=== PATIENT | male | born 1945 | race Caucasian/White ===

== ENCOUNTER → 2017-02-12 | Outpatient (CLI) | payer OTHER ==
[~2017-02-12] MED LIST: NONE PER PT
== END | disposition home or self-care (01) ==
LOC: EDSTATUS 02-04 14:07 → ROC 13:08
PROVIDERS: ATTEND Radiology Radiation Oncology
DX: C20 Malignant neoplasm of rectum (principal); Z92.3 Personal history of irradiation
CPT/HCPCS: 99212; G0463

== ENCOUNTER → 2017-03-31 | Outpatient (CLI) | payer OTHER | END | disposition home or self-care (01) | LOC: WOUND 10:57 | PROVIDERS: ATTEND Internal Medicine Cardiovascular Disease | DX: C20 Malignant neoplasm of rectum (principal); F41.9 Anxiety disorder, unspecified | CPT/HCPCS: 99214 ==

== ENCOUNTER → 2017-04-03 | Outpatient (CLI) | payer OTHER ==
[2017-04-03 12:47] LABS: ASPARTATE AMINO TRANSFERASE 16 U/L (15-37); BLOOD UREA NITROGEN 15 mg/dL (7-18)
== END | disposition home or self-care (01) ==
LOC: STAR 11:13
PROVIDERS: ATTEND Surgery
DX: Z01.818 Encounter for other preprocedural examination (principal); R94.31 Abnormal electrocardiogram [ECG] [EKG]; C20 Malignant neoplasm of rectum; F41.9 Anxiety disorder, unspecified
CPT/HCPCS: 36415; 80053; 82378; 85025; 93005

== ENCOUNTER 2017-04-10 11:14 | Inpatient (IN) | payer MEDICARE, OTHER ==
[~2017-04-10] VITALS: Ht 185.4 cm; Wt 103.2 kg
[2017-04-10 11:38] VITALS: BP 129/81
[2017-04-10] MEDS ORDERED: LACTATED RINGERS 1,000 ML IV SCH (11:45)
[2017-04-10] MEDS ORDERED: FENTANYL PF 250 MCG/5ML ONE (13:55)
[2017-04-10] MEDS ORDERED: MIDAZOLAM 1 MG/ML, 2ML ONE (13:56)
[2017-04-10] MEDS ORDERED: INDOCYANINE GREEN 25 MG VIAL ONE (13:56)
[2017-04-10] MEDS ORDERED: BUPIVACAINE/PF 0.5% ONE (13:57)
[2017-04-10] MEDS ORDERED: FENTANYL PF 100 MCG/2ML ONE ×2 (17:09→18:40)
[2017-04-10] MEDS ORDERED: BUPIVACAINE/PF-EPI 0.5% 1:200K ONE (17:18)
[2017-04-10] MEDS ORDERED: cloniDINE/PF 100 MCG/ML, 10 ML ONE (17:18)
[2017-04-10] MEDS ORDERED: ACETAMINOPHEN 325 MG TABLET PO PRN (18:30)
[2017-04-10] MEDS ORDERED: OXYcodone 5 MG/5 ML ORAL.SOL UDC PO PRN (18:30)
[2017-04-10] MEDS ORDERED: hydrALAzine 20 MG/ML, 1ML IV PRN (18:30)
[2017-04-10] MEDS ORDERED: ONDANSETRON 2MG/ML, 2ML IVPush PRN (18:30)
[2017-04-10] MEDS ORDERED: MEPERIDINE/PF 25MG/0.5ML IVPush PRN (18:30)
[2017-04-10] MEDS ORDERED: PROMETHAZINE 25 MG/ML, 1ML IV PRN (18:30)
[2017-04-10] MEDS ORDERED: LABETALOL 5MG/ML, 20ML IV PRN (18:30)
[2017-04-10] MEDS: FENTANYL PF 100 MCG/2ML IV PRN ×4 (18:40→19:10)
[2017-04-10] MEDS ORDERED: HYDROmorphone 1 MG/ML, 1ML ONE ×2 (18:40→19:09)
[2017-04-10] MEDS: HYDROmorphone 1 MG/ML, 1ML IV PRN ×5 (18:45→19:24)
[2017-04-10] MEDS ORDERED: LORazepam 1MG TABLET PO PRN (21:30)
[2017-04-10] MEDS ORDERED: LORazepam 2 MG/ML, 1ML IV PRN (21:30)
[2017-04-10] MEDS: POTASSIUM CHLORIDE 20 MEQ in D5%-0.45% NACL 1,000 ML IV SCH (21:30)
[2017-04-10] MEDS: OXYcodone 5 MG/5 ML ORAL.SOL UDC PO PRN ×2 (21:34→22:32)
[2017-04-10] MEDS: IBUPROFEN 600 MG TABLET PO SCH (21:34)
[2017-04-10] MEDS: ONDANSETRON 2MG/ML, 2ML IV PRN (21:38)
[2017-04-10] MEDS: ACETAMINOPHEN 500 MG TABLET PO SCH (22:32)
[2017-04-10] MEDS: FAMOTIDINE 20 MG TABLET PO SCH (23:11)
[2017-04-11 03:37] VITALS: BP 144/83
[2017-04-11] MEDS: ONDANSETRON 2MG/ML, 2ML IV PRN (04:39)
[2017-04-11] MEDS: ACETAMINOPHEN 500 MG TABLET PO SCH ×4 (04:39→23:01)
[2017-04-11] MEDS: OXYcodone 5 MG/5 ML ORAL.SOL UDC PO PRN ×2 (04:39→12:21)
[2017-04-11] MEDS: CEFOTETAN PMX 2GM/50ML 50 ML IVPB SCH ×2 (05:16→17:17)
[2017-04-11 06:35] VITALS: BP 124/66
[2017-04-11] MEDS: IBUPROFEN 600 MG TABLET PO SCH ×3 (08:49→21:10)
[2017-04-11] MEDS: FAMOTIDINE 20 MG TABLET PO SCH ×2 (08:49→21:10)
[2017-04-11 09:18] LABS: HEMATOCRIT 44.7 % (39.2-51.8); HEMOGLOBIN 15.3 g/dL (13.7-18.0); WHITE BLOOD COUNT 12.2 x10^3/uL (3.4-10)
[2017-04-11 09:29] LABS: BLOOD UREA NITROGEN 16 mg/dL (7-18)
[2017-04-11] MEDS ORDERED: ENOXAPARIN 40 MG/0.4 ML SQ SCH (12:15)
[2017-04-11 12:51] VITALS: BP 114/64
[2017-04-11] MEDS: POTASSIUM CHLORIDE 20 MEQ in D5%-0.45% NACL 1,000 ML IV SCH (17:18)
[2017-04-11 20:45] VITALS: BP 111/68
[2017-04-12 02:24] VITALS: BP 129/74
[2017-04-12] MEDS: ACETAMINOPHEN 500 MG TABLET PO SCH ×4 (05:07→22:28)
[2017-04-12 05:36] LABS: HEMATOCRIT 40.9 % (39.2-51.8); HEMOGLOBIN 13.9 g/dL (13.7-18.0); WHITE BLOOD COUNT 10.9 x10^3/uL (3.4-10)
[2017-04-12 05:47] LABS: BLOOD UREA NITROGEN 15 mg/dL (7-18)
[2017-04-12] MEDS: FAMOTIDINE 20 MG TABLET PO SCH ×2 (08:18→21:00)
[2017-04-12] MEDS: IBUPROFEN 600 MG TABLET PO SCH ×3 (08:20→21:00)
[2017-04-12] MEDS: ONDANSETRON 2MG/ML, 2ML IV PRN ×2 (08:22→20:07)
[2017-04-12] MEDS: ENOXAPARIN 40 MG/0.4 ML SQ SCH (08:26)
[2017-04-12 08:54] VITALS: BP 145/80
[2017-04-12] MEDS: OXYcodone 5 MG/5 ML ORAL.SOL UDC PO PRN (11:32)
[2017-04-12 12:31] VITALS: BP 146/77
[2017-04-12] MEDS: POTASSIUM CHLORIDE 20 MEQ in D5%-0.45% NACL 1,000 ML IV SCH (14:45)
[2017-04-12 20:01] VITALS: BP 142/84
[2017-04-12] MEDS: HYDROmorphone 1 MG/ML, 1ML IV PRN ×2 (20:07→22:21)
[2017-04-13] MEDS: HYDROmorphone 1 MG/ML, 1ML IV PRN ×2 (00:57→04:09)
[2017-04-13 01:01] VITALS: BP 147/81
[2017-04-13] MEDS: ACETAMINOPHEN 500 MG TABLET PO SCH ×4 (03:14→22:30)
[2017-04-13] MEDS: ONDANSETRON 2MG/ML, 2ML IV PRN ×2 (04:09→13:05)
[2017-04-13 08:24] VITALS: BP 157/83
[2017-04-13 08:33] LABS: HEMATOCRIT 48.1 % (39.2-51.8); HEMOGLOBIN 16.4 g/dL (13.7-18.0); WHITE BLOOD COUNT 14.6 x10^3/uL (3.4-10)
[2017-04-13 08:35] LABS: BLOOD UREA NITROGEN 19 mg/dL (7-18)
[2017-04-13] MEDS: IBUPROFEN 600 MG TABLET PO SCH ×3 (09:00→20:35)
[2017-04-13] MEDS: FAMOTIDINE 20 MG TABLET PO SCH ×2 (09:00→20:35)
[2017-04-13] MEDS: ENOXAPARIN 40 MG/0.4 ML SQ SCH (09:00)
[2017-04-13] MEDS: POTASSIUM CHLORIDE 20 MEQ in D5%-0.45% NACL 1,000 ML IV SCH (10:55)
[2017-04-13 15:25] VITALS: BP 134/74
[2017-04-13 19:00] VITALS: BP 112/62
[2017-04-14 02:26] VITALS: BP 154/84
[2017-04-14] MEDS: POTASSIUM CHLORIDE 20 MEQ in D5%-0.45% NACL 1,000 ML IV SCH (03:11)
[2017-04-14] MEDS: ACETAMINOPHEN 500 MG TABLET PO SCH ×5 (04:16→22:50)
[2017-04-14] MEDS: ENOXAPARIN 40 MG/0.4 ML SQ SCH (08:48)
[2017-04-14] MEDS: FAMOTIDINE 20 MG TABLET PO SCH ×2 (08:48→20:26)
[2017-04-14] MEDS: IBUPROFEN 600 MG TABLET PO SCH ×3 (08:48→20:26)
[2017-04-14 09:00] VITALS: BP 146/78
[2017-04-14 09:05] LABS: HEMATOCRIT 44.3 % (39.2-51.8); HEMOGLOBIN 15.1 g/dL (13.7-18.0); WHITE BLOOD COUNT 11.9 x10^3/uL (3.4-10)
[2017-04-14 09:14] LABS: BLOOD UREA NITROGEN 23 mg/dL (7-18)
[2017-04-14 16:59] VITALS: BP 148/82
[2017-04-14] MEDS ORDERED: CALCIUM CARBONATE 500 MG TAB.CHEW PO PRN (18:30)
[2017-04-14] MEDS: D5%-0.45NACL+KCL 20MEQ 1,000 ML IV SCH ×2 (18:33→22:50)
[2017-04-14 19:32] VITALS: BP 144/89
[2017-04-14] MEDS ORDERED: DIPHENOXYLATE/ATROPINE TABLET PO SCH (21:00)
[2017-04-15 01:31] VITALS: BP 154/74
[2017-04-15 05:17] LABS: HEMATOCRIT 43.4 % (39.2-51.8); HEMOGLOBIN 14.7 g/dL (13.7-18.0); WHITE BLOOD COUNT 11.4 x10^3/uL (3.4-10)
[2017-04-15 05:43] LABS: BLOOD UREA NITROGEN 23 mg/dL (7-18); C-REACTIVE PROTEIN, QUANT 0.85 mg/dL (0.02-0.49)
[2017-04-15] MEDS: METOCLOPRAMIDE 5 MG/ML, 2ML IVPush SCH ×3 (07:28→19:44)
[2017-04-15 07:47] VITALS: BP 125/78
[2017-04-15] MEDS ORDERED: D5%-0.45NACL+KCL 20MEQ 1,000 ML IV SCH (08:30)
[2017-04-15] MEDS ORDERED: OMNIPAQUE 350 MG/ML, 150 ML BOTTLE ONE (08:38)
[2017-04-15 09:29] LABS: BLOOD UREA NITROGEN 22 mg/dL (7-18)
[2017-04-15] MEDS: ENOXAPARIN 40 MG/0.4 ML SQ SCH (09:40)
[2017-04-15] MEDS: FAMOTIDINE 20 MG TABLET PO SCH ×2 (09:40→21:42)
[2017-04-15] MEDS: ACETAMINOPHEN 500 MG TABLET PO SCH ×3 (09:41→22:30)
[2017-04-15] MEDS: IBUPROFEN 600 MG TABLET PO SCH ×3 (09:44→21:42)
[2017-04-15] MEDS: D5%-0.45NACL+KCL 20MEQ 1,000 ML IV SCH ×2 (09:45→18:03)
[2017-04-15 13:21] VITALS: BP 115/68
[2017-04-15] MEDS ORDERED: PHENOL THROAT SPRAY BOTTLE MM PRN (14:30)
[2017-04-15] MEDS ORDERED: DIPHENOXYLATE/ATROPINE TABLET PO SCH (17:00)
[2017-04-15] MEDS ORDERED: BENZOCAINE AEROSOL SPRAY 20%, 60ML TP PRN (18:30)
[2017-04-15 19:20] VITALS: BP 162/81
[2017-04-16] MEDS: D5%-0.45NACL+KCL 20MEQ 1,000 ML IV SCH ×3 (01:42→18:24)
[2017-04-16] MEDS: METOCLOPRAMIDE 5 MG/ML, 2ML IVPush SCH ×4 (01:51→20:01)
[2017-04-16] MEDS: ACETAMINOPHEN 500 MG TABLET PO SCH ×4 (04:30→22:30)
[2017-04-16 04:33] VITALS: BP 147/83
[2017-04-16 05:43] LABS: HEMATOCRIT 44.3 % (39.2-51.8); HEMOGLOBIN 14.9 g/dL (13.7-18.0); WHITE BLOOD COUNT 11.7 x10^3/uL (3.4-10)
[2017-04-16 06:04] LABS: BLOOD UREA NITROGEN 22 mg/dL (7-18); C-REACTIVE PROTEIN, QUANT 0.87 mg/dL (0.02-0.49)
[2017-04-16 07:47] VITALS: BP 112/72
[2017-04-16] MEDS: FAMOTIDINE 20 MG TABLET PO SCH ×2 (08:35→20:00)
[2017-04-16] MEDS: ENOXAPARIN 40 MG/0.4 ML SQ SCH (08:36)
[2017-04-16] MEDS: IBUPROFEN 600 MG TABLET PO SCH ×3 (08:36→20:01)
[2017-04-16 13:13] VITALS: BP 156/70
[2017-04-16 19:52] VITALS: BP 137/75
[2017-04-17 01:42] VITALS: BP 132/75
[2017-04-17] MEDS: METOCLOPRAMIDE 5 MG/ML, 2ML IVPush SCH ×3 (01:58→13:30)
[2017-04-17] MEDS: D5%-0.45NACL+KCL 20MEQ 1,000 ML IV SCH ×2 (03:38→11:44)
[2017-04-17] MEDS: ACETAMINOPHEN 500 MG TABLET PO SCH ×2 (04:00→10:30)
[2017-04-17 05:38] LABS: BLOOD UREA NITROGEN 20 mg/dL (7-18)
[2017-04-17 05:41] LABS: HEMATOCRIT 41.4 % (39.2-51.8); WHITE BLOOD COUNT 9.2 x10^3/uL (3.4-10)
[2017-04-17 06:55] VITALS: BP 121/70
[2017-04-17] MEDS: FAMOTIDINE 20 MG TABLET PO SCH (07:49)
[2017-04-17] MEDS: IBUPROFEN 600 MG TABLET PO SCH (07:49)
[2017-04-17] MEDS: ENOXAPARIN 40 MG/0.4 ML SQ SCH (07:50)
[2017-04-17 13:05] VITALS: BP 147/78
[2017-04-17] MEDS ORDERED: OXYC-302 PO (14:33)
== END 2017-04-17 14:45 | disposition home or self-care (01) | DRG 330 ==
LOC: ORIP 11:14 → 4NOR 20:45 → DCLOUNGE 04-17 14:20
PROVIDERS: ADMIT Surgery; ATTEND Surgery
PROC: 0DBN8ZZ Excision of Sigmoid Colon, Via Natural or Artificial Opening Endoscopic (ICD-10-PCS; 2017-04-10)
PROC: 0D1B4Z4 Bypass Ileum to Cutaneous, Percutaneous Endoscopic Approach (ICD-10-PCS; 2017-04-10)
PROC: 0DBP8ZZ Excision of Rectum, Via Natural or Artificial Opening Endoscopic (ICD-10-PCS; principal; 2017-04-10 13:00)
DX: C20 Malignant neoplasm of rectum (principal); N17.9 Acute kidney failure, unspecified
CPT/HCPCS: 36415; 74177; 80048; 82040; 85025; 86140; 86850; 86900; 88304; 88307; J1170; J2250; J2405; J3010; J3480; J3490; Q9967; J0735; J2765; J7120; S0074

== ENCOUNTER → 2017-04-23 | Outpatient (CLI) | payer OTHER ==
[~2017-04-23] MED LIST changes: +OXYC-302 PO
== END | disposition home or self-care (01) ==
LOC: WOUND 10:33
PROVIDERS: ATTEND Internal Medicine
DX: C20 Malignant neoplasm of rectum (principal); F41.9 Anxiety disorder, unspecified
CPT/HCPCS: 99213

== ENCOUNTER → 2017-06-11 | Outpatient (CLI) | payer OTHER | END | disposition home or self-care (01) | LOC: ROC 13:48 | PROVIDERS: ATTEND Radiology Radiation Oncology | DX: C20 Malignant neoplasm of rectum (principal); Z93.2 Ileostomy status; Z92.3 Personal history of irradiation | CPT/HCPCS: 99212; G0463 ==

== ENCOUNTER → 2017-11-07 | Outpatient (CLI) | payer OTHER | LOC: RAD 07:39 | PROVIDERS: ATTEND Surgery | DX: K57.90 Diverticulosis of intestine, part unspecified, without perforation or abscess without bleeding (principal); Z93.2 Ileostomy status | CPT/HCPCS: 74270 ==

== ENCOUNTER → 2017-12-11 | Outpatient (CLI) | payer OTHER ==
[~2017-12-11] MED LIST changes: +No meds per pt.
[2017-12-11 13:50] LABS: ALANINE AMINOTRANSFERASE 29 U/L (12-78); ALBUMIN 4.1 g/dL (3.4-5.0); ANION GAP 8 mmol/L (5-15); CALCIUM 8.8 mg/dL (8.5-10.1); CHLORIDE 105 mmol/L (98-107); CREATININE 0.85 mg/dL (0.7-1.3)
[2017-12-11 13:52] LABS: ALKALINE PHOSPHATASE 113 U/L (45-117); BILIRUBIN,TOTAL 1.4 mg/dL (0.2-1.0); TOTAL PROTEIN 7.6 g/dL (6.4-8.2)
[2017-12-11 14:01] LABS: BASOPHILS # (AUTO) 0.02 x10^3/uL (0-0.1); BASOPHILS % (AUTO) 0 % (0-1); EOSINOPHILS # (AUTO) 0.11 x10^3/uL (0-0.4); EOSINOPHILS % (AUTO) 2 % (1-7); LYMPHOCYTES # (AUTO) 0.53 x10^3/uL (1-3.4); LYMPHOCYTES % (AUTO) 9 % (22-44); MD NO; MEAN CORPUSCULAR HEMOGLOBIN 37.4 pg (27.5-34.5); MEAN CORPUSCULAR HGB CONC 34.2 g/dL (33.2-36.2); MEAN CORPUSCULAR VOLUME 109.2 fL (81-97); MEAN PLATELET VOLUME 6.7 fL (7.4-10.4); MONOCYTES # (AUTO) 0.62 x10^3/uL (0.2-0.8); MONOCYTES % (AUTO) 11 % (2-9); NEUTROPHILS # (AUTO) 4.42 x10^3/uL (1.8-6.8); NEUTROPHILS % (AUTO) 78 % (42-75); PLATELET COUNT 197 x10^3/uL (130-400); RED CELL DISTRIBUTION WIDTH 14.4 % (9.4-14.8)
== END | disposition home or self-care (01) ==
LOC: STAR 12:40
PROVIDERS: ATTEND Surgery
DX: Z01.818 Encounter for other preprocedural examination (principal); I44.4 Left anterior fascicular block
CPT/HCPCS: 36415; 80053; 85025; 93005

== ENCOUNTER 2017-12-23 13:29 | Emergency (ER) | payer OTHER, MEDICARE ==
[~2017-12-23] VITALS: Ht 185.4 cm; Wt 98.1 kg
[~2017-12-23 13:29] MED LIST changes: +ACET-76 PO; +CALC500T PO; +IBUP-11 PO
[2017-12-23] MEDS ORDERED: SODIUM CHLORIDE FLUSH 10ML SYR IVF ONE (14:30)
[2017-12-23] MEDS ORDERED: ONDANSETRON 2MG/ML, 2ML IVPush ONE (14:30)
[2017-12-23 15:10] LABS: MEAN CORPUSCULAR HGB CONC 34.1 g/dL (33.2-36.2); MEAN CORPUSCULAR VOLUME 105.8 fL (81-97); MEAN PLATELET VOLUME 6.8 fL (7.4-10.4); PLATELET COUNT 180 x10^3/uL (130-400); RED BLOOD COUNT 3.83 x10^6/uL (4.38-5.82); RED CELL DISTRIBUTION WIDTH 14.2 % (9.4-14.8)
[2017-12-23 15:12] LABS: ALANINE AMINOTRANSFERASE 45 U/L (12-78); ALBUMIN 3.8 g/dL (3.4-5.0); ANION GAP 8 mmol/L (5-15); CALCIUM 8.8 mg/dL (8.5-10.1); CHLORIDE 101 mmol/L (98-107); CREATININE 0.78 mg/dL (0.7-1.3); INTERNATIONAL NORMALIZED RATIO 0.98 (0.93-1.1); PROTHROMBIN TIME 10.2 Seconds (9.6-11.5)
[2017-12-23 15:14] LABS: ALKALINE PHOSPHATASE 136 U/L (45-117); BILIRUBIN,TOTAL 2.4 mg/dL (0.2-1.0); TOTAL PROTEIN 7.1 g/dL (6.4-8.2)
[2017-12-23 15:30] VITALS: BP 131/70
[2017-12-23 15:54] LABS: BASOPHILS # (AUTO) 0.01 x10^3/uL (0-0.1); BASOPHILS % (AUTO) 0 % (0-1); EOSINOPHILS % (AUTO) 1 % (1-7); LYMPHOCYTES # (AUTO) 0.56 x10^3/uL (1-3.4); LYMPHOCYTES % (AUTO) 7 % (22-44); MD SCAN; MONOCYTES # (AUTO) 0.73 x10^3/uL (0.2-0.8); MONOCYTES % (AUTO) 9 % (2-9); NEUTROPHILS # (AUTO) 6.42 x10^3/uL (1.8-6.8); NEUTROPHILS % (AUTO) 82 % (42-75)
== END 2017-12-23 16:42 | disposition home or self-care (01) ==
LOC: ED 16:15
DX: E80.6 Other disorders of bilirubin metabolism (principal); R21 Rash and other nonspecific skin eruption; Z93.3 Colostomy status
CPT/HCPCS: 36415; 74022; 80053; 83690; 85025; 85610; 99285

== ENCOUNTER → 2018-05-14 | Outpatient (CLI) | payer OTHER ==
[~2018-05-14] MED LIST changes: +OMNIPAQUE 350 MG/ML, 100ML BOTTLE ONE
== END | disposition home or self-care (01) ==
LOC: CFH 09:36
PROVIDERS: ATTEND Internal Medicine Hematology & Oncology
DX: C20 Malignant neoplasm of rectum (principal)
CPT/HCPCS: 71260; 74177; Q9967

== ENCOUNTER → 2018-12-31 | Outpatient (CLI) | payer OTHER ==
[~2018-12-31] MED LIST changes: -OMNIPAQUE 350 MG/ML, 100ML BOTTLE ONE; +OMNIPAQUE 350 MG/ML, 150 ML BOTTLE ONE
== END | disposition home or self-care (01) ==
LOC: CFH 11:11
PROVIDERS: ATTEND Internal Medicine Hematology & Oncology
DX: C20 Malignant neoplasm of rectum (principal); E04.1 Nontoxic single thyroid nodule; K40.90 Unilateral inguinal hernia, without obstruction or gangrene, not specified as recurrent; K76.89 Other specified diseases of liver; M48.55XD Collapsed vertebra, not elsewhere classified, thoracolumbar region, subsequent encounter for fracture with routine healing; Z98.890 Other specified postprocedural states; Z72.89 Other problems related to lifestyle
CPT/HCPCS: 71260; 74177; 82565; Q9967

== ENCOUNTER 2019-12-13 08:50 | Outpatient (CLI) | payer OTHER ==
[~2019-12-13 08:50] MED LIST changes: -CALC500T PO; +CALC500T29 PO; -OMNIPAQUE 350 MG/ML, 150 ML BOTTLE ONE
[2019-12-13] MEDS ORDERED: OMNIPAQUE 350 MG/ML, 100ML BOTTLE ONE (13:00)
== END 2019-12-13 23:59 | disposition home or self-care (01) ==
LOC: CFH 08:50
PROVIDERS: ATTEND Internal Medicine Hematology & Oncology
DX: M51.44 Schmorl's nodes, thoracic region (principal); M25.78 Osteophyte, vertebrae; K57.30 Diverticulosis of large intestine without perforation or abscess without bleeding; M43.8X6 Other specified deforming dorsopathies, lumbar region
CPT/HCPCS: 71260; 74177; Q9967